=== PATIENT | male | born 1975 | race Two or more races ===

== ENCOUNTER 2022-11-02 13:50 | Emergency (ER) | payer SELFPAY ==
[2022-11-02 13:58] VITALS: BP 145/106; PULSE 91; RESP 20; TEMP 36.8; O2SAT 98; BMI 36.0
[2022-11-02] MEDS: IBUPROFEN 600 MG TABLET PO (14:40)
[2022-11-02] MEDS: DEXAMETHASONE SODIUM PHOSPHATE 10 MG/ML VIAL PO (14:41)
--- NOTE | 2022-11-02 14:55 | ED_ITS ---
HPI - General Adult General Chief complaint: Weakness Stated complaint: GENERAL MALAISE Time Seen by Provider: 11/02/22 13:55 Source: patient and friend Source information: SPEAKS SOME EGYPTIAN, FRIEND ASSISTED Mode of arrival: walk-in Limitations: language barrier Limitations comment: [place] History of Present Illness HPI narrative: 39-year-old male to the emergency department with chief complaint of malaise, flulike symptoms reports onset of sore throat, cough, generalized muscle aches, fatigue that began two days ago. Reports he missed work yesterday for this. He wanted to get a work note and a COVID test so he went to urgent care but was turned away as he has no insurance. He denies any chest pain or shortness of breath. Related Data Home Medications Medication Instructions Recorded Confirmed No Known Home Medications 11/02/22 11/02/22 Allergies Allergy/AdvReac Type Severity Reaction Status Date / Time No Known Drug Allergies Allergy Verified 11/02/22 14:07 Review of Systems ROS Status of ROS 10 or more systems reviewed and unremarkable except as noted in history and below [facility] Social History Smoking status: Current every day smoker Exam Narrative Exam Narrative: VITALS: I have reviewed the triage vital signs. GENERAL: Well developed, well appearing adult in no acute distress. NEURO: Alert and oriented. Moves all extremities. Face is symmetric and expressive. EYES: PERRL. No scleral icterus or conjunctival injection. No discharge. HENT: Normocephalic, atraumatic. Hearing is grossly intact. Nares grossly patent and without discharge. Mucous membranes moist. Uvula midline. There is no unilateral Tonsillar swelling. NECK: No JVD. Patient moves neck without restriction. CARDIO: Rhythm regular. Normal rate. No murmur, rub, or gallop. Pulses equal bilaterally in the upper and lower extremity. No lower extremity edema. PULM: Lungs clear to auscultation in all martinez. No wheezes, rales, or rhonchi. No conversational dyspnea. No splinting, stridor, or accessory muscle use. GI/: Abdomen is soft and non-tender. Normoactive bowel sounds. EXTREMITIES: Symmetric muscle bulk. No joint swelling. No clubbing, cyanosis, or deformity. SKIN: Warm and dry. Normal turgor. No rash or lesions appreciated. PSYCH: Mood, affect, and interaction is appropriate to the setting. Constitutional Vital Signs, click to edit/add: Last Vital Signs Temp 98.3 F 11/02/22 13:58 Pulse 91 H 11/02/22 13:58 Resp 20 11/02/22 13:58 BP 145/106 H 11/02/22 13:58 Pulse Ox 98 11/02/22 13:58 O2 Del Method Room Air 11/02/22 13:58 Course Vital Signs Vital signs: Vital Signs Temperature 98.3 F 11/02/22 13:58 Pulse Rate 91 H 11/02/22 13:58 Respiratory Rate 20 11/02/22 13:58 Blood Pressure 145/106 H 11/02/22 13:58 Pulse Oximetry 98 11/02/22 13:58 Oxygen Delivery Method Room Air 11/02/22 13:58 Temperature 98.3 F 11/02/22 13:58 Pulse Rate 91 H 11/02/22 13:58 Respiratory Rate 20 11/02/22 13:58 Blood Pressure 145/106 H 11/02/22 13:58 Pulse Oximetry 98 11/02/22 13:58 Oxygen Delivery Method Room Air 11/02/22 13:58 Medical Decision Making MDM Narrative Medical decision making narrative: Well-appearing 39-year-old male to the emergency department with flulike symptoms requesting a work note and comatose. Vital stable, patient is afebrile. Patient is mostly [place]olan-speaking and would like his friend in the room to provide translation for him. Ibuprofen and dexamethasone or radicular symptoms. Will proceed with COVID and strep testing. Positive Covid testing. Negative strep. Expectant management. Patient is given isolation instructions in [place]olan. Return precautions discussed. All questions were answered. Patient was discharged home. Lab Data Labs: Lab Results 11/02/22 Range/Units 14:30 Streptococcus Screen Negative Discharge Plan Discharge Chief Complaint: Weakness Clinical Impression: COVID-19 Patient Disposition: Home, Self-Care Time of Disposition Decision: 15:08 Condition: Good Mode of Transportation: Private Vehicle Prescriptions / Home Meds: No Action No Known Home Medications Print Language: Angolan Instructions: COVID-19 (Coronavirus Disease 2019) (ED), COVID-19: Slow the Coronavirus Spread (ED), Face Coverings (Masks) and COVID-19 (ED), How to Recover from COVID-19 at Home (ED) Stand Alone Forms: Portal Instructions Referrals: Physician,Non-Staff, MD [Primary Care Provider] - 1 week
[2022-11-02 14:57] LABS: Internal Control Within Normal Limits; Strep A Antigen Screen Negative
[2022-11-02 15:10] LABS: SARS-CoV-2 Ag reflex to NAA Positive (NEGATIVE)
== END 2022-11-02 15:12 | disposition home or self-care (01) ==
PROVIDERS: Emergency Provider Student in an Organized Health Care Education/Training Program
DX: U07.1 COVID-19 (principal); F17.210 Nicotine dependence, cigarettes, uncomplicated
CPT/HCPCS: 87070; 87880; 99283; J1100